=== PATIENT | female | born 1965 | race Caucasian/White ===

== ENCOUNTER → 2017-03-12 | Outpatient (CLI) | payer BC ==
[~2017-03-12] MED LIST: ACIPHEX; LISI-646; NOR5T
[2017-03-12 07:51] LABS: Basophils # (auto) 0.1 uL; Basophils % (auto) 0.9 % (0.0-2.0); Eosinophils # (auto) 0.2 uL; Eosinophils % (auto) 3.1 % (0.0-7.0); Hematocrit 43.4 % (36.0-46.0); Hemoglobin 14.4 g/dL (12.2-16.2); Lymphocytes # (auto) 1.9 uL; Lymphocytes % (auto) 29.1 % (10.0-50.0); Mean Corpuscular Hemoglobin 29.4 pg (28.0-32.0); Mean Corpuscular Hgb Conc. 33.1 g/dL (32.0-36.0); Mean Corpuscular Volume 88.7 fL (80.0-100.0); Mean Platelet Volume 9.2 fL (7.4-10.4); Monocytes # (auto) 0.4 uL; Monocytes % (auto) 6.2 % (0.0-12.0); Neutrophils % (auto) 60.7 % (37.0-80.0); Platelet Count (auto) 337 10^3/uL (140-450); Red Cell Distribution Width 12.7 % (11.6-16.0); White Blood Cell 6.5 10^3/uL (4.4-10.8)
[2017-03-12 08:25] LABS: Albumin 3.9 g/dL (3.4-5.0); Bilirubin, Total 0.4 mg/dL (0.2-1.0); Calcium 9.1 mg/dL (8.5-10.1); Potassium 4.2 mmol/L (3.5-5.1); Total Protein 8.1 g/dL (6.4-8.2)
== END | disposition home or self-care (01) ==
LOC: LAB 06:34
PROVIDERS: ATTEND Internal Medicine
DX: Z83.3 Family history of diabetes mellitus (principal); I10 Essential (primary) hypertension
CPT/HCPCS: 36415; 80053; 80061; 82306; 83036; 84443; 85025

== ENCOUNTER 2018-01-26 09:04 | Emergency (ER) | payer BC ==
[~2018-01-26] VITALS: Ht 165.1 cm; Wt 100.2 kg
[~2018-01-26 09:04] MED LIST changes: +HYDR-4683; -NOR5T
[2018-01-26 09:22] VITALS: BP 154/90
[2018-01-26 10:28] LABS: Basophils # (auto) 0.1 uL; Basophils % (auto) 0.8 % (0.0-2.0); Eosinophils # (auto) 0.1 uL; Eosinophils % (auto) 1.3 % (0.0-7.0); Hematocrit 44.1 % (36.0-46.0); Hemoglobin 14.8 g/dL (12.2-16.2); Lymphocytes # (auto) 1.7 uL; Lymphocytes % (auto) 23.7 % (10.0-50.0); Mean Corpuscular Hemoglobin 30.6 pg (28.0-32.0); Mean Corpuscular Hgb Conc. 33.6 g/dL (32.0-36.0); Mean Corpuscular Volume 91.1 fL (80.0-100.0); Monocytes # (auto) 0.5 uL; Monocytes % (auto) 6.8 % (0.0-12.0); Neutrophils # (auto) 4.8 uL; Neutrophils % (auto) 67.4 % (37.0-80.0); Nucleated Red Blood Cells % 0.2 %; Platelet Count (auto) 318 10^3/uL (140-450); Red Blood Cells 4.84 10^6/uL (4.0-5.20); Red Cell Distribution Width 12.5 % (11.8-14.3); White Blood Cell 7.2 10^3/uL (4.4-10.8)
[2018-01-26] MEDS ORDERED: ONDANSETRON ODT 4 MG TAB PO ONE (10:30)
[2018-01-26] MEDS ORDERED: KETOROLAC TROMETH 60MG/2ML VIAL IM ONE (10:30)
[2018-01-26 10:57] LABS: BUN/Creatinine Ratio 19.3; Bilirubin, Total 0.6 mg/dL (0.2-1.0); Calcium 9.4 mg/dL (8.5-10.1); Potassium 5.1 mmol/L (3.5-5.1); Total Protein 8.6 g/dL (6.4-8.2)
[2018-01-26 11:00] LABS: Urine Bacteria NONE SEEN /hpf (None Seen); Urine Blood Negative /uL (Negative); Urine Mucus FEW (None Seen); Urine Specific Gravity 1.025 (1.001-1.035); Urine WBC 6 /hpf (0 - 5)
== END 2018-01-26 11:38 | disposition home or self-care (01) ==
LOC: ER 09:04
DX: N39.0 Urinary tract infection, site not specified (principal); K76.0 Fatty (change of) liver, not elsewhere classified; N20.0 Calculus of kidney; R74.8 Abnormal levels of other serum enzymes; I10 Essential (primary) hypertension; Z90.710 Acquired absence of both cervix and uterus; Z88.6 Allergy status to analgesic agent; Z79.899 Other long term (current) drug therapy; Z87.442 Personal history of urinary calculi; Z90.49 Acquired absence of other specified parts of digestive tract
CPT/HCPCS: 36415; 74176; 80053; 81001; 83690; 85025; 93005; 96372; 99285; J1885; Q0162

== ENCOUNTER → 2018-02-17 | Outpatient (CLI) | payer BC ==
[2018-02-17 07:55] LABS: Basophils # (auto) 0.1 uL; Basophils % (auto) 1.1 % (0.0-2.0); Eosinophils # (auto) 0.3 uL; Eosinophils % (auto) 4.3 % (0.0-7.0); Hematocrit 42.8 % (36.0-46.0); Hemoglobin 14.4 g/dL (12.2-16.2); Lymphocytes # (auto) 2.9 uL; Lymphocytes % (auto) 39.8 % (10.0-50.0); Mean Corpuscular Hemoglobin 30.2 pg (28.0-32.0); Mean Corpuscular Hgb Conc. 33.6 g/dL (32.0-36.0); Mean Corpuscular Volume 90.1 fL (80.0-100.0); Monocytes # (auto) 0.5 uL; Monocytes % (auto) 7.7 % (0.0-12.0); Neutrophils # (auto) 3.4 uL; Neutrophils % (auto) 47.1 % (37.0-80.0); Nucleated Red Blood Cells % 0.1 %; Platelet Count (auto) 322 10^3/uL (140-450); Red Blood Cells 4.75 10^6/uL (4.0-5.20); Red Cell Distribution Width 12.5 % (11.8-14.3); White Blood Cell 7.2 10^3/uL (4.4-10.8)
[2018-02-17 08:33] LABS: Albumin 3.8 g/dL (3.4-5.0); Bilirubin, Total 0.3 mg/dL (0.2-1.0); Calcium 8.7 mg/dL (8.5-10.1); Potassium 4.5 mmol/L (3.5-5.1); Total Protein 8.1 g/dL (6.4-8.2)
[2018-02-17 08:58] LABS: Hepatitis B Surface Antibody Negative
[2018-02-17 09:08] LABS: Hepatitis B Surface Antigen Negative (Negative)
[2018-02-17 09:34] LABS: Hepatitis C Antibody Negative (Negative)
[2018-02-17 09:35] LABS: Hepatitis A Total Antibody Positive; Hepatitis B Core Total AB Negative
== END | disposition home or self-care (01) ==
LOC: LAB 07:13
PROVIDERS: ATTEND Internal Medicine
DX: R94.5 Abnormal results of liver function studies (principal); I10 Essential (primary) hypertension; Z79.899 Other long term (current) drug therapy
CPT/HCPCS: 36415; 80053; 85025; 86704; 86706; 86708; 86803; 87340

== ENCOUNTER 2018-07-01 10:12 | Emergency (ER) | payer BC ==
[~2018-07-01] VITALS: Ht 165.1 cm; Wt 98.9 kg
[2018-07-01 10:36] VITALS: BP 135/84
[2018-07-01] MEDS ORDERED: KETOROLAC TROMETH 60MG/2ML VIAL IM ONE (12:15)
== END 2018-07-01 12:29 | disposition home or self-care (01) ==
LOC: ER 10:12
DX: H11.32 Conjunctival hemorrhage, left eye (principal); H66.92 Otitis media, unspecified, left ear; I10 Essential (primary) hypertension; Z88.8 Allergy status to other drugs, medicaments and biological substances; Z79.899 Other long term (current) drug therapy; Z90.49 Acquired absence of other specified parts of digestive tract; Z90.710 Acquired absence of both cervix and uterus
CPT/HCPCS: 70450; 96372; 99284; J1885

== ENCOUNTER → 2019-02-07 | Outpatient (CLI) | payer BC ==
[2019-02-07 10:19] LABS: Basophils # (auto) 0.1 uL; Basophils % (auto) 1.1 % (0.0-2.0); Eosinophils # (auto) 0.2 uL; Eosinophils % (auto) 3.7 % (0.0-7.0); Hematocrit 42.8 % (36.0-46.0); Hemoglobin 14.4 g/dL (12.2-16.2); Lymphocytes # (auto) 2.5 uL; Lymphocytes % (auto) 39.5 % (10.0-50.0); Mean Corpuscular Hemoglobin 30.1 pg (28.0-32.0); Mean Corpuscular Hgb Conc. 33.5 g/dL (32.0-36.0); Mean Corpuscular Volume 89.8 fL (80.0-100.0); Monocytes # (auto) 0.5 uL; Monocytes % (auto) 7.1 % (0.0-12.0); Neutrophils # (auto) 3.1 uL; Neutrophils % (auto) 48.6 % (37.0-80.0); Platelet Count (auto) 311 10^3/uL (140-450); Red Blood Cells 4.77 10^6/uL (4.0-5.20); Red Cell Distribution Width 12.8 % (11.8-14.3); White Blood Cell 6.4 10^3/uL (4.4-10.8)
[2019-02-07 10:32] LABS: Albumin 3.9 g/dL (3.4-5.0); Calcium 9.1 mg/dL (8.5-10.1); Potassium 4.3 mmol/L (3.5-5.1)
[2019-02-07 10:36] LABS: Bilirubin, Total 0.3 mg/dL (0.2-1.0); Total Protein 8.1 g/dL (6.4-8.2)
== END | disposition home or self-care (01) ==
LOC: LAB 09:47
PROVIDERS: ATTEND Internal Medicine
DX: E78.5 Hyperlipidemia, unspecified (principal); I10 Essential (primary) hypertension; E03.9 Hypothyroidism, unspecified
CPT/HCPCS: 36415; 80053; 80061; 84443; 85025

== ENCOUNTER → 2019-03-29 | Outpatient (CLI) | payer BC | END | disposition home or self-care (01) | LOC: LAB 10:38 | PROVIDERS: ATTEND Internal Medicine | DX: R19.5 Other fecal abnormalities (principal) | CPT/HCPCS: 82270 ==

== ENCOUNTER 2019-10-19 15:22 | Emergency (ER) | payer BC ==
[~2019-10-19] VITALS: Ht 165.1 cm; Wt 99.8 kg
[~2019-10-19 15:22] MED LIST changes: -HYDR-4683; +HYDR-4833
[2019-10-19 16:09] LABS: Chloride 108 mmol/L (98-107); Potassium 4.2 mmol/L (3.5-5.1); Sodium 141 mmol/L (136-145)
[2019-10-19 16:13] LABS: Basophils # (auto) 0.1 uL; Basophils % (auto) 0.9 % (0.0-2.0); Eosinophils # (auto) 0.1 uL; Eosinophils % (auto) 2.2 % (0.0-7.0); Hematocrit 40.6 % (36.0-46.0); Hemoglobin 13.6 g/dL (12.2-16.2); Lymphocytes # (auto) 1.8 uL; Lymphocytes % (auto) 28.9 % (10.0-50.0); Mean Corpuscular Hemoglobin 30.3 pg (28.0-32.0); Mean Corpuscular Hgb Conc. 33.6 g/dL (32.0-36.0); Mean Corpuscular Volume 90.1 fL (80.0-100.0); Monocytes # (auto) 0.5 uL; Monocytes % (auto) 7.6 % (0.0-12.0); Neutrophils # (auto) 3.8 uL; Neutrophils % (auto) 60.4 % (37.0-80.0); Platelet Count (auto) 303 10^3/uL (140-450); White Blood Cell 6.3 10^3/uL (4.4-10.8)
[2019-10-19 16:17] LABS: Alanine Aminotransferase 45 U/L (13-56); Albumin 4.1 g/dL (3.4-5.0); Alkaline Phosphatase 79 U/L (45-117); Anion Gap 6 (5-15); Aspartate Aminotransferase 20 U/L (15-37); BUN/Creatinine Ratio 30.5; Bilirubin, Total 0.3 mg/dL (0.2-1.0); Blood Urea Nitrogen 25 mg/dL (7-18); Carbon Dioxide 27 mmol/L (21-32); GFR African American 94 mL/min; GFR Non-African American 78 mL/min; Glucose 125 mg/dL (74-106); Total Protein 8.1 g/dL (6.4-8.2)
[2019-10-19] MEDS ORDERED: SODIUM CHLORIDE 0.9% 1,000 ML IVB ONE (16:19)
[2019-10-19] MEDS ORDERED: MORPHINE SULFATE 4 MG/ML SYR/VIAL IV ONE (16:30)
[2019-10-19] MEDS ORDERED: ONDANSETRON HCL 4 MG/2 ML VIAL IV ONE (16:30)
[2019-10-19 21:00] VITALS: BP 116/58
== END 2019-10-19 21:05 | disposition home or self-care (01) ==
LOC: ER 15:22
DX: R07.89 Other chest pain (principal); R10.9 Unspecified abdominal pain; R42 Dizziness and giddiness; I10 Essential (primary) hypertension; Z90.710 Acquired absence of both cervix and uterus; Z90.49 Acquired absence of other specified parts of digestive tract; Z88.8 Allergy status to other drugs, medicaments and biological substances
CPT/HCPCS: 36415; 70450; 71046; 74176; 80053; 83690; 84484; 85025; 93005; 96361; 96374; 96375; 99284; J2270; J2405

== ENCOUNTER → 2019-11-09 | Outpatient (CLI) | payer BC | END | disposition home or self-care (01) | LOC: XY 08:06 | PROVIDERS: ATTEND Internal Medicine | DX: I10 Essential (primary) hypertension (principal); R55 Syncope and collapse | CPT/HCPCS: 93886 ==

== ENCOUNTER 2020-01-14 03:27 | Emergency (ER) | payer BC ==
[~2020-01-14] VITALS: Ht 165.1 cm; Wt 103.4 kg
[2020-01-14] MEDS ORDERED: cloNIDine HCL 0.1 MG TAB PO ONE (04:30)
[2020-01-14 05:37] LABS: Urine Bacteria NONE SEEN /hpf (None Seen); Urine Blood 3+ /uL (Negative); Urine Specific Gravity 1.023 (1.001-1.035); Urine WBC 593 /hpf (0 - 5)
[2020-01-14] MEDS ORDERED: SODIUM CHLORIDE 0.9% 500 ML IVB ONE (09:01)
[2020-01-14] MEDS ORDERED: SODIUM CHLORIDE 0.9% 1,000 ML IV ONE (09:01)
[2020-01-14] MEDS ORDERED: cefTRIAXone 1GM/50ML D5W 50 ML IV ONE (09:15)
[2020-01-14 09:55] LABS: Basophils # (auto) 0.1 uL; Basophils % (auto) 0.5 % (0.0-2.0); Eosinophils # (auto) 0.1 uL; Eosinophils % (auto) 0.8 % (0.0-7.0); Hematocrit 41.4 % (36.0-46.0); Hemoglobin 13.5 g/dL (12.2-16.2); Lymphocytes # (auto) 2.1 uL; Lymphocytes % (auto) 15.6 % (10.0-50.0); Mean Corpuscular Hemoglobin 29.6 pg (28.0-32.0); Mean Corpuscular Hgb Conc. 32.6 g/dL (32.0-36.0); Mean Corpuscular Volume 90.9 fL (80.0-100.0); Monocytes # (auto) 0.7 uL; Monocytes % (auto) 4.9 % (0.0-12.0); Neutrophils # (auto) 10.6 uL; Neutrophils % (auto) 78.2 % (37.0-80.0); Platelet Count (auto) 340 10^3/uL (140-450); Red Blood Cells 4.56 10^6/uL (4.0-5.20); Red Cell Distribution Width 12.7 % (11.8-14.3); White Blood Cell 13.5 10^3/uL (4.4-10.8)
[2020-01-14 10:18] LABS: BUN/Creatinine Ratio 21.6; Calcium 9.2 mg/dL (8.5-10.1); Magnesium 2.1 mg/dL (1.6-2.6); Potassium 4.2 mmol/L (3.5-5.1)
[2020-01-14 10:20] LABS: Lactic Acid w/Reflex 2.6 mmol/L (0.4-2.0)
[2020-01-14] MEDS ORDERED: MORPHINE SULF INJ 2 MG/ML SYRINGE 1ML IV ONE (10:30)
[2020-01-14] MEDS ORDERED: PROMETHAZINE HCL 25 MG/ML 1ML IV ONE (10:30)
[2020-01-14 11:18] VITALS: BP 124/55
== END 2020-01-14 11:54 | disposition home or self-care (01) ==
LOC: ER 03:27
DX: N12 Tubulo-interstitial nephritis, not specified as acute or chronic (principal); K76.0 Fatty (change of) liver, not elsewhere classified; I10 Essential (primary) hypertension; Z90.710 Acquired absence of both cervix and uterus; Z90.49 Acquired absence of other specified parts of digestive tract; Z88.8 Allergy status to other drugs, medicaments and biological substances
CPT/HCPCS: 36415; 74176; 80048; 81001; 82150; 83605; 83690; 83735; 85025; 87040; 93005; 96365; 96366; 96375; 99285; J0696; J2270; J2550; J7040

== ENCOUNTER → 2020-02-08 | Outpatient (CLI) | payer BC ==
[2020-02-08 16:11] LABS: Free T3 2.78 pg/mL (2.3-4.2); Free T4 (Free Thyroxine) 0.8 ng/dL (0.89-1.76); T3 Total 1.41 ng/mL (0.60-1.81)
== END | disposition home or self-care (01) ==
LOC: LAB 15:28
PROVIDERS: ATTEND Internal Medicine
DX: I10 Essential (primary) hypertension (principal)
CPT/HCPCS: 36415; 84439; 84443; 84480; 84481

== ENCOUNTER → 2020-05-02 | Outpatient (CLI) | payer BC | END | disposition home or self-care (01) | LOC: XYW 08:31 | PROVIDERS: ATTEND Internal Medicine | DX: R55 Syncope and collapse (principal); R07.9 Chest pain, unspecified | CPT/HCPCS: 93306 ==

== ENCOUNTER → 2020-05-14 | Outpatient (CLI) | payer BC ==
[2020-05-14 11:06] VITALS: BP 143/95
== END | disposition home or self-care (01) ==
LOC: XYW 10:14
PROVIDERS: ATTEND Internal Medicine
DX: R55 Syncope and collapse (principal)
CPT/HCPCS: 93017

== ENCOUNTER → 2020-07-26 | Outpatient (CLI) | payer BC ==
[~2020-07-26] MED LIST changes: +LISI-646 PO
[2020-07-26 09:51] LABS: Basophils # (auto) 0.1 10 ^3/uL (0-0.2); Basophils % (auto) 1.3 % (0.0-2.0); Eosinophils # (auto) 0.2 10 ^3/uL (0-0.8); Hematocrit 43.2 % (36.0-46.0); Hemoglobin 14.5 g/dL (12.2-16.2); Lymphocytes # (auto) 1.9 10 ^3/uL (0.4-5.4); Lymphocytes % (auto) 37.1 % (10.0-50.0); Mean Corpuscular Hemoglobin 29.9 pg (28.0-32.0); Mean Corpuscular Hgb Conc. 33.6 g/dL (32.0-36.0); Mean Corpuscular Volume 88.9 fL (80.0-100.0); Monocytes # (auto) 0.3 10 ^3/uL (0-1.3); Monocytes % (auto) 6.7 % (0.0-12.0); Neutrophils # (auto) 2.7 10 ^3/uL (1.6-8.6); Neutrophils % (auto) 51.9 % (37.0-80.0); Nucleated Red Blood Cells % 0.1 %; Platelet Count (auto) 327 10^3/uL (140-450); Red Blood Cells 4.86 10^6/uL (4.0-5.20); Red Cell Distribution Width 12.9 % (11.8-14.3); White Blood Cell 5.2 10^3/uL (4.4-10.8)
[2020-07-26 10:10] LABS: INR 0.97 (0.9-1.15)
[2020-07-26 10:50] LABS: Albumin 3.9 g/dL (3.4-5.0); Calcium 9.2 mg/dL (8.5-10.1); Potassium 4.2 mmol/L (3.5-5.1)
[2020-07-26 10:56] LABS: BUN/Creatinine Ratio 30.7; Bilirubin, Total 0.3 mg/dL (0.2-1.0)
== END | disposition home or self-care (01) ==
LOC: LAB 09:26
PROVIDERS: ATTEND Internal Medicine
DX: Z01.812 Encounter for preprocedural laboratory examination (principal)
CPT/HCPCS: 36415; 80053; 85025; 85610; 85730

== ENCOUNTER 2020-07-31 08:07 | Day surgery (SDC) | payer BC ==
[~2020-07-31] VITALS: Ht 165.1 cm; Wt 97.5 kg
[~2020-07-31 08:07] MED LIST changes: -ACIPHEX; -HYDR-4833; -LISI-646
[2020-07-31] MEDS ORDERED: ANGIOMAX 250 MG VIAL IV ONE (09:09)
[2020-07-31] MEDS ORDERED: HEPARIN SODIUM (PORCINE) 5000 UNITS/ML 1ML VIAL ONE (09:10)
[2020-07-31] MEDS ORDERED: VERAPAMIL 2.5MG/ML INJ 2ML VIAL IV ONE (09:10)
[2020-07-31] MEDS ORDERED: MIDAZOLAM HCL 1MG/1ML-2 ML VIAL ONE (09:12)
[2020-07-31] MEDS ORDERED: fentaNYL CITRATE 100 MCG/2 ML VL ONE (09:12)
[2020-07-31] MEDS ORDERED: SODIUM CHL 0.9% 0 ML ONE (09:13)
[2020-07-31] MEDS ORDERED: IOHEXOL 350 MG/ML 100ML IJ ONE (09:13)
[2020-07-31] MEDS ORDERED: LIDOCAINE 2%HCL (LOCAL ANESTH.) INJ 20ML MDV ONE (09:13)
[2020-07-31] MEDS ORDERED: HYDROcodone-ACET 5/325MG TAB PO PRN (10:45)
[2020-07-31] MEDS ORDERED: ACETAMINOPHEN 500 MG TAB PO PRN (10:45)
[2020-07-31] MEDS ORDERED: ONDANSETRON HCL 4 MG/2 ML VIAL IV PRN (10:45)
== END 2020-07-31 12:30 | disposition home or self-care (01) ==
LOC: CATH 08:07
PROVIDERS: ATTEND Internal Medicine
DX: R07.89 Other chest pain (principal); I10 Essential (primary) hypertension; Z79.899 Other long term (current) drug therapy; Z98.890 Other specified postprocedural states; Z88.8 Allergy status to other drugs, medicaments and biological substances; Z20.828 Contact with and (suspected) exposure to other viral communicable diseases; Z90.710 Acquired absence of both cervix and uterus; Z85.43 Personal history of malignant neoplasm of ovary; Z85.41 Personal history of malignant neoplasm of cervix uteri
CPT/HCPCS: 93458; C1887; C1894; J1644; J2250; J3010; J7030; Q9967; U0003; 99152; 99153

== ENCOUNTER 2020-11-28 05:59 | Inpatient (IN) | payer BC ==
[~2020-11-28] VITALS: Ht 165.1 cm; Wt 105.1 kg
[~2020-11-28 05:59] MED LIST changes: -LISI-646 PO; +LISI20TA28 PO
[2020-11-28 06:42] LABS: Basophils # (auto) 0.1 10 ^3/uL (0-0.2); Basophils % (auto) 1.1 % (0.0-2.0); Eosinophils # (auto) 0.2 10 ^3/uL (0-0.8); Eosinophils % (auto) 3.5 % (0.0-7.0); Hematocrit 42.5 % (36.0-46.0); Hemoglobin 14.3 g/dL (12.2-16.2); Lymphocytes # (auto) 2.2 10 ^3/uL (0.4-5.4); Lymphocytes % (auto) 37.1 % (10.0-50.0); Mean Corpuscular Hemoglobin 30.5 pg (28.0-32.0); Mean Corpuscular Hgb Conc. 33.7 g/dL (32.0-36.0); Mean Corpuscular Volume 90.6 fL (80.0-100.0); Monocytes # (auto) 0.5 10 ^3/uL (0-1.3); Neutrophils # (auto) 2.9 10 ^3/uL (1.6-8.6); Neutrophils % (auto) 50.3 % (37.0-80.0); Red Blood Cells 4.69 10^6/uL (4.0-5.20); Red Cell Distribution Width 14.1 % (11.8-14.3); White Blood Cell 5.8 10^3/uL (4.4-10.8)
[2020-11-28] MEDS ORDERED: KETOROLAC TROMETH 30 MG/ML 1ML VIAL IV ONE (07:00)
[2020-11-28] MEDS ORDERED: ONDANSETRON HCL 4 MG/2 ML VIAL IV ONE (07:00)
[2020-11-28] MEDS ORDERED: SODIUM CHLORIDE 0.9% 1,000 ML IV ONE ×3 (07:00→17:00)
[2020-11-28 07:12] LABS: Alanine Aminotransferase 42 U/L (13-56); Anion Gap 7 (5-15); Aspartate Aminotransferase 19 U/L (15-37); BUN/Creatinine Ratio 28.4; Blood Urea Nitrogen 27 mg/dL (7-18); Calcium 8.8 mg/dL (8.5-10.1); Carbon Dioxide 25 mmol/L (21-32); Chloride 107 mmol/L (98-107); GFR African American 79 mL/min; GFR Non-African American 65 mL/min; Glucose 113 mg/dL (74-106); Sodium 139 mmol/L (136-145)
[2020-11-28 07:15] LABS: Alkaline Phosphatase 83 U/L (45-117); Bilirubin, Total 0.2 mg/dL (0.2-1.0); Total Protein 8.1 g/dL (6.4-8.2)
[2020-11-28] MEDS ORDERED: TAMSULOSIN HYDROCHLORIDE 0.4 MG CAP PO ONE (08:00)
[2020-11-28 08:02] LABS: Urine Bacteria NONE SEEN /hpf (None Seen); Urine Blood 3+ /uL (Negative); Urine Hyaline Cast FEW /lpf (0 - 2); Urine Mucus FEW (None Seen); Urine Specific Gravity 1.031 (1.001-1.035); Urine WBC 17 /hpf (0 - 5)
[2020-11-28] MEDS ORDERED: cefTRIAXone 1GM/50ML D5W 50 ML IV ONE ×2 (10:45→17:00)
[2020-11-28] MEDS ORDERED: DEXTROSE (50%) 50ML SYRG IV PRN (17:00)
[2020-11-28] MEDS ORDERED: ACETAMINOPHEN 500 MG TAB PO PRN (17:00)
[2020-11-28] MEDS ORDERED: TEMAZEPAM 15 MG CAP PO PRN (17:00)
[2020-11-28] MEDS ORDERED: traMADol HCL 50 MG TAB PO PRN (17:00)
[2020-11-28] MEDS: PROMETHAZINE HCL 25 MG/ML 1ML IV PRN (17:53)
[2020-11-28] MEDS: ACCU-CHEK COMFORT CURVE STRIP VI SCH (17:53)
[2020-11-28] MEDS: TAMSULOSIN HYDROCHLORIDE 0.4 MG CAP PO SCH (17:53)
[2020-11-28] MEDS: SODIUM CHLORIDE 0.9% 1,000 ML IV SCH (18:17)
[2020-11-28] MEDS ORDERED: ALBU108A5 IN (18:20)
[2020-11-28] MEDS: FAMOTIDINE 20 MG TAB PO SCH (22:14)
[2020-11-29] MEDS: SODIUM CHLORIDE 0.9% 1,000 ML IV SCH ×3 (03:00→21:47)
[2020-11-29 05:21] VITALS: BP 137/63
[2020-11-29] MEDS: ACCU-CHEK COMFORT CURVE STRIP VI SCH ×2 (06:30)
[2020-11-29 08:00] VITALS: BP 136/85
[2020-11-29] MEDS: cefTRIAXone 1GM/50ML D5W 50 ML IV SCH (08:56)
[2020-11-29] MEDS: FAMOTIDINE 20 MG TAB PO SCH ×2 (10:09→22:00)
[2020-11-29] MEDS ORDERED: SODIUM CHLORIDE 0.9% 1,000 ML IV ONE (11:45)
[2020-11-29] MEDS ORDERED: MANNITOL FTV 25% 12.5 GM/50 ML 50 ML IV ONE (11:45)
[2020-11-29] MEDS: PROMETHAZINE HCL 25 MG/ML 1ML IV PRN (12:48)
[2020-11-29] MEDS: MORPHINE SULFATE INJECTION 2 MG/ML SYRG IV PRN (12:49)
[2020-11-29 16:00] VITALS: BP 142/82
[2020-11-29] MEDS: TAMSULOSIN HYDROCHLORIDE 0.4 MG CAP PO SCH (17:57)
[2020-11-30] VITALS: BP 123/59
[2020-11-30 05:41] LABS: Basophils # (auto) 0.1 10 ^3/uL (0-0.2); Basophils % (auto) 1.1 % (0.0-2.0); Eosinophils # (auto) 0.2 10 ^3/uL (0-0.8); Eosinophils % (auto) 4.4 % (0.0-7.0); Hematocrit 37.1 % (36.0-46.0); Hemoglobin 12.5 g/dL (12.2-16.2); Lymphocytes # (auto) 2.2 10 ^3/uL (0.4-5.4); Lymphocytes % (auto) 41.6 % (10.0-50.0); Mean Corpuscular Hemoglobin 30.4 pg (28.0-32.0); Mean Corpuscular Hgb Conc. 33.8 g/dL (32.0-36.0); Mean Corpuscular Volume 90.2 fL (80.0-100.0); Monocytes # (auto) 0.4 10 ^3/uL (0-1.3); Monocytes % (auto) 6.6 % (0.0-12.0); Neutrophils # (auto) 2.5 10 ^3/uL (1.6-8.6); Neutrophils % (auto) 46.3 % (37.0-80.0); Nucleated Red Blood Cells % 0.1 %; Red Blood Cells 4.11 10^6/uL (4.0-5.20); Red Cell Distribution Width 13.7 % (11.8-14.3); White Blood Cell 5.3 10^3/uL (4.4-10.8)
[2020-11-30 05:59] LABS: BUN/Creatinine Ratio 19.4; Calcium 8.2 mg/dL (8.5-10.1); Potassium 3.8 mmol/L (3.5-5.1)
[2020-11-30] MEDS: SODIUM CHLORIDE 0.9% 1,000 ML IV SCH ×2 (07:31→20:51)
[2020-11-30 08:00] VITALS: BP 139/70
[2020-11-30] MEDS: cefTRIAXone 1GM/50ML D5W 50 ML IV SCH (09:02)
[2020-11-30] MEDS: FAMOTIDINE 20 MG TAB PO SCH ×2 (10:04→22:00)
[2020-11-30 16:00] VITALS: BP 130/73
[2020-11-30] MEDS: TAMSULOSIN HYDROCHLORIDE 0.4 MG CAP PO SCH (17:32)
[2020-11-30] MEDS: MORPHINE SULFATE INJECTION 2 MG/ML SYRG IV PRN (20:50)
[2020-11-30] MEDS: PROMETHAZINE HCL 25 MG/ML 1ML IV PRN (20:51)
[2020-11-30 22:00] VITALS: BP 135/75
[2020-12-01 05:00] VITALS: BP 127/72
[2020-12-01 08:00] VITALS: BP 135/79
[2020-12-01] MEDS: FAMOTIDINE 20 MG TAB PO SCH ×2 (10:00→21:52)
[2020-12-01] MEDS: cefTRIAXone 1GM/50ML D5W 50 ML IV SCH (10:00)
[2020-12-01 11:57] LABS: INR 1.02 (0.9-1.15)
[2020-12-01 16:00] VITALS: BP 130/81
[2020-12-01] MEDS: TAMSULOSIN HYDROCHLORIDE 0.4 MG CAP PO SCH (17:59)
[2020-12-01] MEDS: SODIUM CHLORIDE 0.9% 1,000 ML IV SCH (18:47)
[2020-12-01 23:46] VITALS: BP 141/78
[2020-12-02 05:42] VITALS: BP 116/73
[2020-12-02] MEDS: SODIUM CHLORIDE 0.9% 1,000 ML IV SCH ×3 (06:00→20:11)
[2020-12-02 06:14] LABS: Basophils # (auto) 0.1 10 ^3/uL (0-0.2); Basophils % (auto) 1.1 % (0.0-2.0); Eosinophils # (auto) 0.3 10 ^3/uL (0-0.8); Eosinophils % (auto) 4.1 % (0.0-7.0); Hematocrit 38.3 % (36.0-46.0); Hemoglobin 13.3 g/dL (12.2-16.2); Lymphocytes # (auto) 2.2 10 ^3/uL (0.4-5.4); Lymphocytes % (auto) 35.2 % (10.0-50.0); Mean Corpuscular Hemoglobin 30.8 pg (28.0-32.0); Mean Corpuscular Hgb Conc. 34.6 g/dL (32.0-36.0); Monocytes # (auto) 0.4 10 ^3/uL (0-1.3); Monocytes % (auto) 6.4 % (0.0-12.0); Neutrophils # (auto) 3.3 10 ^3/uL (1.6-8.6); Neutrophils % (auto) 53.2 % (37.0-80.0); Nucleated Red Blood Cells % 0.1 %; Red Blood Cells 4.31 10^6/uL (4.0-5.20); Red Cell Distribution Width 13.5 % (11.8-14.3); White Blood Cell 6.1 10^3/uL (4.4-10.8)
[2020-12-02 06:22] LABS: BUN/Creatinine Ratio 18.4; Calcium 8.6 mg/dL (8.5-10.1)
[2020-12-02 08:00] VITALS: BP 123/88
[2020-12-02] MEDS: FAMOTIDINE 20 MG TAB PO SCH ×2 (10:00→22:10)
[2020-12-02] MEDS ORDERED: IOHEXOL 300 MG/ML 100ML BOTTLE IJ ONE (10:41)
[2020-12-02] MEDS: cefTRIAXone 1GM/50ML D5W 50 ML IV SCH (11:07)
[2020-12-02] MEDS ORDERED: SUCCINYLCHOLINE CHLORIDE 20 MG/ML 10ML VIAL IV ONE (11:18)
[2020-12-02] MEDS ORDERED: MIDAZOLAM HCL 2MG/2ML 2ml VIAL (1mg/ml) ONE (11:30)
[2020-12-02] MEDS ORDERED: fentaNYL CITRATE 100 MCG/2 ML VL ONE (11:30)
[2020-12-02] MEDS ORDERED: PROPOFOL 10 MG/ML 20 ML IV ONE (12:14)
[2020-12-02] MEDS ORDERED: ePHEDrine SULFATE 50 MG/ML AMP IV PRN (12:45)
[2020-12-02] MEDS ORDERED: fentaNYL CITRATE 100 MCG/2 ML VL IV PRN (12:45)
[2020-12-02] MEDS ORDERED: hydrALAZINE HCL 20 MG/ML VL IV PRN (12:45)
[2020-12-02] MEDS ORDERED: ONDANSETRON HCL 4 MG/2 ML VIAL IV PRN (12:45)
[2020-12-02] MEDS ORDERED: MANNITOL FTV 25% 12.5 GM/50 ML 50 ML IV ONE (13:00)
[2020-12-02] MEDS: MORPHINE SULFATE INJECTION 2 MG/ML SYRG IV PRN (14:43)
[2020-12-02 14:47] VITALS: BP 130/76
[2020-12-02] MEDS: TAMSULOSIN HYDROCHLORIDE 0.4 MG CAP PO SCH (19:03)
[2020-12-02] MEDS: PROMETHAZINE HCL 25 MG/ML 1ML IV PRN (19:53)
[2020-12-02 22:00] VITALS: BP 123/76
[2020-12-03 05:20] VITALS: BP 114/67
[2020-12-03] MEDS: SODIUM CHLORIDE 0.9% 1,000 ML IV SCH (06:28)
[2020-12-03 08:00] VITALS: BP 129/81
[2020-12-03 09:00] VITALS: BP 129/81
[2020-12-03] MEDS: cefTRIAXone 1GM/50ML D5W 50 ML IV SCH (09:00)
[2020-12-03] MEDS: FAMOTIDINE 20 MG TAB PO SCH (10:00)
[2020-12-03 11:16] VITALS: BP 129/81
== END 2020-12-03 12:00 | disposition home or self-care (01) | DRG 690 ==
LOC: ER 05:59 → OVERFLOW 06:00 → CENTRAL 11-29 03:17
PROVIDERS: ADMIT Internal Medicine; ATTEND Internal Medicine
PROC: 0TF6XZZ Fragmentation in Right Ureter, External Approach (ICD-10-PCS; 2020-12-02)
PROC: 0TF4XZZ Fragmentation in Left Kidney Pelvis, External Approach (ICD-10-PCS; principal; 2020-12-02 11:21)
DX: N13.6 Pyonephrosis (principal); Z20.822 Contact with and (suspected) exposure to COVID-19; E66.9 Obesity, unspecified; I10 Essential (primary) hypertension; I25.10 Atherosclerotic heart disease of native coronary artery without angina pectoris; K76.0 Fatty (change of) liver, not elsewhere classified; G89.29 Other chronic pain; J40 Bronchitis, not specified as acute or chronic; K80.20 Calculus of gallbladder without cholecystitis without obstruction; M54.5 Low back pain; Q62.5 Duplication of ureter; Z79.899 Other long term (current) drug therapy; Z80.9 Family history of malignant neoplasm, unspecified; Z82.3 Family history of stroke; Z83.3 Family history of diabetes mellitus; Z85.43 Personal history of malignant neoplasm of ovary; Z87.442 Personal history of urinary calculi; Z90.49 Acquired absence of other specified parts of digestive tract; Z90.710 Acquired absence of both cervix and uterus; Z98.82 Breast implant status; Z68.38 Body mass index [BMI] 38.0-38.9, adult
CPT/HCPCS: 36415; 71045; 74176; 80048; 80053; 81001; 82962; 83036; 84443; 85025; 85610; 87086; 87426; 96361; 96365; 96375; G0378; J0330; J0696; J1885; J2250; J2405; J2704

== ENCOUNTER → 2021-03-17 | Outpatient (CLI) | payer BC ==
[~2021-03-17] MED LIST changes: +ALBU108A5 IN
[2021-03-17 10:01] LABS: Basophils # (auto) 0.1 10 ^3/uL (0-0.2); Basophils % (auto) 1.2 % (0.0-2.0); Eosinophils # (auto) 0.2 10 ^3/uL (0-0.8); Eosinophils % (auto) 3.6 % (0.0-7.0); Hemoglobin 15.1 g/dL (12.2-16.2); Lymphocytes # (auto) 2.5 10 ^3/uL (0.4-5.4); Lymphocytes % (auto) 38.1 % (10.0-50.0); Mean Corpuscular Hgb Conc. 34.3 g/dL (32.0-36.0); Mean Corpuscular Volume 90.6 fL (80.0-100.0); Monocytes # (auto) 0.4 10 ^3/uL (0-1.3); Monocytes % (auto) 6.3 % (0.0-12.0); Neutrophils # (auto) 3.4 10 ^3/uL (1.6-8.6); Neutrophils % (auto) 50.8 % (37.0-80.0); Platelet Count (auto) 338 10^3/uL (140-450); Red Blood Cells 4.86 10^6/uL (4.0-5.20); White Blood Cell 6.7 10^3/uL (4.4-10.8)
[2021-03-17 10:27] LABS: Potassium 4.1 mmol/L (3.5-5.1)
[2021-03-17 10:40] LABS: Albumin 3.9 g/dL (3.4-5.0); BUN/Creatinine Ratio 20.5; Bilirubin, Total 0.2 mg/dL (0.2-1.0); Calcium 9.2 mg/dL (8.5-10.1); Total Protein 8.3 g/dL (6.4-8.2)
[2021-03-17 10:59] LABS: Free T4 (Free Thyroxine) 0.97 ng/dL (0.89-1.76); T3 Total 1.18 ng/mL (0.60-1.81)
== END | disposition home or self-care (01) ==
LOC: LAB 08:56
PROVIDERS: ATTEND Internal Medicine
DX: E03.9 Hypothyroidism, unspecified (principal); E78.5 Hyperlipidemia, unspecified; E55.9 Vitamin D deficiency, unspecified
CPT/HCPCS: 36415; 80053; 80061; 82043; 82306; 83036; 84439; 84443; 84480; 85025; 85652; 86431

== ENCOUNTER → 2021-10-06 | Outpatient (CLI) | payer BC | END | disposition home or self-care (01) | LOC: LAB 11:35 | PROVIDERS: ATTEND Internal Medicine | DX: E03.9 Hypothyroidism, unspecified (principal) | CPT/HCPCS: 36415; 84443 ==

== ENCOUNTER → 2022-04-06 | Outpatient (CLI) | payer BC ==
[2022-04-06 08:43] LABS: Basophils # (auto) 0.1 10 ^3/uL (0-0.2); Basophils % (auto) 1.1 % (0.0-2.0); Eosinophils # (auto) 0.2 10 ^3/uL (0-0.8); Eosinophils % (auto) 3.6 % (0.0-7.0); Hematocrit 42.8 % (36.0-46.0); Hemoglobin 14.4 g/dL (12.2-16.2); Lymphocytes # (auto) 2.5 10 ^3/uL (0.4-5.4); Lymphocytes % (auto) 36.7 % (10.0-50.0); Mean Corpuscular Hemoglobin 30.6 pg (28.0-32.0); Mean Corpuscular Hgb Conc. 33.7 g/dL (32.0-36.0); Mean Corpuscular Volume 90.8 fL (80.0-100.0); Monocytes # (auto) 0.4 10 ^3/uL (0-1.3); Monocytes % (auto) 6.3 % (0.0-12.0); Neutrophils # (auto) 3.5 10 ^3/uL (1.6-8.6); Neutrophils % (auto) 52.3 % (37.0-80.0); Nucleated Red Blood Cells % 0.1 %; Red Blood Cells 4.72 10^6/uL (4.0-5.20); Red Cell Distribution Width 13.2 % (11.8-14.3); White Blood Cell 6.7 10^3/uL (4.4-10.8)
[2022-04-06 09:20] LABS: Albumin 3.5 g/dL (3.4-5.0); Calcium 10.1 mg/dL (8.5-10.1); Potassium 4.4 mmol/L (3.5-5.1)
[2022-04-06 09:26] LABS: BUN/Creatinine Ratio 24.5; Bilirubin, Total 0.2 mg/dL (0.2-1.0)
== END | disposition home or self-care (01) ==
LOC: LAB 08:26
PROVIDERS: ATTEND Internal Medicine
DX: E78.5 Hyperlipidemia, unspecified (principal); E55.9 Vitamin D deficiency, unspecified; E03.8 Other specified hypothyroidism
CPT/HCPCS: 36415; 80053; 80061; 82306; 83036; 84443; 85025

== ENCOUNTER → 2022-04-10 | Outpatient (CLI) | payer BC | END | disposition home or self-care (01) | LOC: LAB 12:12 | PROVIDERS: ATTEND Internal Medicine | DX: E78.5 Hyperlipidemia, unspecified (principal); E55.9 Vitamin D deficiency, unspecified; I10 Essential (primary) hypertension; E03.9 Hypothyroidism, unspecified; E03.8 Other specified hypothyroidism | CPT/HCPCS: 82270 ==